=== PATIENT | male | born 1995 | race Caucasian/White ===

== ENCOUNTER 2017-10-18 18:41 | Emergency (ER) | payer OTHER, MEDICAID, SELFPAY ==
[2017-10-18 18:42] VITALS: BP 156/97; PULSE 114; RESP 16; TEMP 36.6; O2SAT 99; BMI 27.3
--- NOTE | 2017-10-18 19:49 | CT_ITS ---
STUDY: CT ABDOMEN AND PELVIS WITHOUT CONTRAST REASON FOR EXAM: Male, 22 years old. Edematous testicles pain RADIATION DOSAGE (If Supplied By Facility): CTDIvol = ( 8.40 ) mGy, DLP = ( 517.87 ) mGycm TECHNIQUE: Transaxial images were obtained from the dome of the diaphragm to the symphysis pubis without oral contrast, and without intravenous contrast. Sagittal and coronal images were reconstructed. Individualized dose optimization techniques were used for this CT. COMPARISON: None. FINDINGS: The visualized lung bases are unremarkable. The visualized portions of the heart are within normal limits. Normal liver. Normal gallbladder and extrahepatic biliary system. Normal spleen. Normal pancreas. Normal bilateral adrenal glands. Normal right kidney. Normal left kidney. Normal visualized stomach. Normal small intestine. Normal colon. The appendix is visualized and appears normal. Normal abdominal aorta. Normal inferior vena cava. Normal retroperitoneum. Normal urinary bladder. Normal abdominal wall. Normal osseous structures. CT/Abdomen/Pelvis without Cont IMPRESSION: Normal unenhanced CT of the abdomen and pelvis. Due to the clinical history of testicular pain, scrotal ultrasound is recommended. Electronically Signed: Hollis Nieto DO at 21:04 EDT Tel [phone], Service support ,
--- NOTE | 2017-10-18 20:01 | ED.RN ---
PT ADMANTLY REFUSES TO LET THIS RN DRAW BLOOD OR INSERT IV, REFUSES IV MEDS, STATES I'LL DO THE PEE TEST, NOTHING ELSE. WILL N OTIFY .
--- NOTE | 2017-10-18 20:23 | US_ITS ---
STUDY: SCROTUM ULTRASOUND REASON FOR EXAM: Male, 22 years old. Pain, swelling TECHNIQUE: Ultrasound evaluation of the scrotum was performed with color Doppler and static ho-scale imaging. COMPARISON: None. FINDINGS: RIGHT TESTICLE INTRATESTICULAR: There is a normal size of the right testicle. The right testicle measures 4.9 x 3.6 x 2.5 cm. There is a homogenous echotexture. There is normal arterial and normal venous vascularity. There is no demonstrated right testicular mass or cyst. EXTRATESTICULAR: The epididymis is normal in size. The epididymis head measures 1.2 x 0.9 cm. There is normal vascularity of the epididymis. There is no demonstrated epididymal cystic structure. There is a moderate hydrocele. There is no demonstrated varicocele. There is no demonstrated extratesticular mass or cyst. LEFT TESTICLE INTRATESTICULAR: There is a normal size of the left testicle. The left testicle measures 5.2 x 2.9 x 2.3 cm. There is a homogenous echotexture. There is normal arterial and normal venous vascularity. There is no demonstrated left testicular mass or cyst. EXTRATESTICULAR: The epididymis is normal in size. The epididymis head measures 1.3 x 0.6 cm. There is normal vascularity of the epididymis. There is no demonstrated epididymal cystic structure. There is no demonstrated hydrocele. There is no demonstrated varicocele. There is no demonstrated extratesticular mass or cyst. US/Testicular with Arterial Flow IMPRESSION: Normal bilateral testicles. Moderate right hydrocele. Electronically Signed: Hollis Nieto DO at 21:33 EDT Tel [phone], Service support ,
[2017-10-18 20:45] LABS: Bacteria 0 SEEN /hpf (None Seen); Red Blood Cells-Urine 0 SEEN /hpf (0-5)
[2017-10-18 20:53] LABS: Color, Urine Yellow (Yellow); Glucose, Dipstick Normal (Normal); Ketone-Dipstick Negative (Negative); Leukocyte Esterase-Dipstick Negative /ul (Negative); Nitrite-Dipstick Negative (Negative); Occult Blood-Urine Negative /ul (Negative); Protein-Dipstick Negative (Negative); Urine Bilirubin Dipstick Negative (Negative); Urine Clarity Clear (Clear); Urine Urobilinogen Normal (Normal)
[2017-10-18 21:00] LABS: Mucous, Urine 2+ /hpf (<or=2+)
[2017-10-18 21:02] LABS: White Blood Cells 0-5 SEEN /hpf (0-5)
[2017-10-18 21:03] LABS: Squamous Epithelial Cells - UA 0-5 SEEN /hpf (0-5)
[2017-10-18 22:36] VITALS: BP 159/91; PULSE 80; RESP 16; O2SAT 97
--- NOTE | 2017-10-18 23:08 | ED.VISSUMM ---
- ER Visit Summary Date of Service: 10/18/17 Chief Complaint: Testicular pain History of Present Illness: The patient is a 22 M states that today around 11:00 PM to have a suprapubic pain that began to radiate to his left testicle. States now the testicle is a little bit tender. Denies any significant swelling. No urinary symptoms. Vomiting or diarrhea. States he has a history of inguinal hernias repaired as an . He smokes and drinks as recreational marijuana. Denies any fever or dysuria. Physical Examination: Afebrile vital signs are stable Gen: Well-nourished well-developed Head: Normocephalic atraumatic Eyes: Perrl EOMI ENT: TMs clear no rhinorrhea moist mucous membranes Neck: Supple no lymphadenopathy no JVD nontender CVS: Regular rate rhythm no murmurs normal S1-S2 Respiratory: No distress clear to auscultation bilaterally chest nontender Abdomen: Soft nontender nondistended normal bowel sounds no masses : Left testicle shows mild tenderness to palpation of the epididymis. There are no masses. Back: Nontender Extremity: Nontender no edema Skin: Normal color no rash Neuro: alert orientated ?3 CN II-XII intact normal strength sensation reflexes gait cerebellar Psych: Normal affect normal mood Test Results: CT of the abdomen pelvis does not demonstrate any kidney stone or obvious explanation for his pain. Duplex ultrasound of the testicle shows equal blood flow bilaterally and no increased vascularity of the epididymis. Urinalysis showed 2+ mucus. GC and Chlamydia are negative. Emergency Department Course and Treatment: Patient was offered Toradol and blood work and he refused. Patient left prior to receipt of all of his testing. Impression: 1. Left testicle pain 2. ED elopement This note was generated with [employer] dictation software. It may contain incorrect words, spelling, and punctuation that were not noted in review of the chart prior to signing ED Disposition - Plan for ED Patient: Disposition: Home or Assisted Living Chief Complaint: Male Pain/Injury Instructions: ED Epididymitis Prescriptions: Ibuprofen [Motrin] 800 mg PO TID PRN PRN #20 tab PRN Reason: Pain Referrals: Care Physician,No Primary [Primary Care Provider] - Mikael Leiva MD [STAFF PHYSICIAN] - (call in am for follow up)
[2017-10-18 23:10] LABS: Chlamydia Trachomatis by PCR Negative (Negative); Neisserai gonorrhoeae by PCR Negative (Negative); Probe Check PASS; Sample Adequacy Control PASS; Specimen Processing Control PASS
--- NOTE | 2017-10-18 23:14 | ED.RN ---
PT NOTED LEAVING ROOM, DRESSED IN STREET CLOTHES, STATES I HAVE TO LEAVE, I'LL BE LATE FOR WORK. IF ANYTHING BAD SHOWS UP I'M SURE THEY'LL CALL ME. PT DOES NOT WANT TO WAIT FOR MD TO DO DC PAPERS, PT DID NOT HAVE IV, MD MADE AWARE.
== END 2017-10-18 23:16 | disposition home or self-care (01) ==
PROVIDERS: Emergency Provider Emergency Medicine
DX: N50.812 Left testicular pain (principal); Z72.0 Tobacco use
CPT/HCPCS: 74176; 76870; 81001; 87491; 87591; 93976; 99282